=== PATIENT | male | born 1965 | race Caucasian/White ===

== ENCOUNTER 2018-10-07 16:34 | Emergency (ER) | payer SELFPAY ==
[2018-10-07 16:49] VITALS: TEMP 97.6
[2018-10-07] MEDS ORDERED: cefTRIAXone SODIUM 1 GM VIAL IM ONE (17:24)
--- NOTE | 2018-10-07 17:29 | ED.PDOC ---
History of Present Illness - General Chief Complaint: Dental/Mouth Stated Complaint: toothache Time Seen by Provider: 10/07/18 16:54 Source: patient Exam Limitations: no limitations - History of Present Illness Initial Comments: PT C/O FACIAL SWELLING AND MOUTH PAIN WORSE PAST 2 DAYS. STATES HAS BAD DENTITION. Severity: moderate Improving Factors: nothing Worsening Factors: nothing Allergies/Adverse Reactions: Allergies Codeine Allergy (Verified 10/07/18 16:49) Home Medications: Ambulatory Orders Amoxicillin [Amoxil] 500 mg PO TID #30 cap 10/07/18 Tramadol HCl [Ultram] 50 mg PO Q6HR PRN #15 tab 10/07/18 Review of Systems - Review of Systems Constitutional: Denies: chills, fever EENTM: States: mouth pain, other - SWELLING R [place]ILL[place] REGION. Denies: ear pain, throat swelling Respiratory: States: no symptoms reported Musculoskeletal: States: no symptoms reported Skin: States: no symptoms reported Hematologic/Lymphatic: States: no symptoms reported Past Medical History (General) - Patient Medical History Hx Stroke: No Hx Congestive Heart Failure: No Hx Diabetes: No Surgical History: no surgical history - Vaccination History Hx Tetanus, Diphtheria Vaccination: No Hx Influenza Vaccination: No Hx Pneumococcal Vaccination: No - Social History Hx Tobacco Use: Yes Hx Alcohol Use: Yes - occ Hx Depression: No Family Medical History - Family History Father Family History: Unknown Living Status: Unknown Physical Exam - Physical Exam General Appearance: Alert, No apparent distress Eye Exam: bilateral normal Ear Exam: bilateral ear: TM normal Throat Exam: pharynx normal, other - MULITPLE DENTAL CARIES WITH R UPPER GINGIVITIS. SWELLING AND TTP R [place] REGION. NO ERYTHEMA, NO INDURATION. Neck: non-tender, supple Cardiovascular/Respiratory: regular rate, rhythm, no M/R/G Neurologic: alert, normal mood/affect Skin Exam: normal color, warm/dry Departure - Departure Clinical Impression: Facial pain, Dental caries Time of Disposition: 17:35 Disposition: Discharge to Home or Self Care Condition: Good Departure Forms: ED Discharge - Pt. Copy, Patient Portal Self Enrollment Instructions: DI for Dental Pain Prescriptions: Tramadol HCl [Ultram] 50 mg PO Q6HR PRN #15 tab PRN Reason: Pain Amoxicillin [Amoxil] 500 mg PO TID #30 cap Home Medications: Ambulatory Orders Amoxicillin [Amoxil] 500 mg PO TID #30 cap 10/07/18 Tramadol HCl [Ultram] 50 mg PO Q6HR PRN #15 tab 10/07/18
[2018-10-07] MEDS ORDERED: LIDOCAINE 1% 10 ML VIAL INJ ONE (17:30)
[2018-10-07 17:55] VITALS: BP 148/92; O2SAT 99
== END 2018-10-07 17:55 | disposition home or self-care (01) ==
LOC: ER 16:34
DX: K02.9 Dental caries, unspecified (principal); K05.10 Chronic gingivitis, plaque induced; Z87.891 Personal history of nicotine dependence; Z88.5 Allergy status to narcotic agent